=== PATIENT | male | born 1980 | race Caucasian/White ===

== ENCOUNTER 2016-11-04 18:03 | Emergency (ER) | payer MEDICAID ==
[~2016-11-04] VITALS: Ht 185.4 cm; Wt 81.6 kg
[2016-11-04] MEDS ORDERED: ACETAMINOPHEN ES 500 MG TABLET ONE (18:05)
[2016-11-04 18:10] VITALS: BP 126/71
[2016-11-04] MEDS ORDERED: ACETAMINOPHEN ES 500 MG TABLET PO ONE (18:30)
== END 2016-11-04 18:20 | disposition home or self-care (01) ==
LOC: ER 18:04
DX: R52 Pain, unspecified (principal); G89.29 Other chronic pain; Z76.5 Malingerer [conscious simulation]
CPT/HCPCS: 99283; A4606; Z7610

== ENCOUNTER 2017-09-22 15:25 | Emergency (ER) | payer MEDICAID ==
[~2017-09-22] VITALS: Ht 182.9 cm; Wt 90.7 kg
[2017-09-22 15:25] VITALS: BP 132/69
[2017-09-22] MEDS ORDERED: PIPERACILLIN /TAZOBACTAM 3.375 G in IV D5W 50 ML IV ONE (16:00)
[2017-09-22] MEDS ORDERED: VANCOMYCIN 1 GM in IV D5W 250 ML IV ONE (16:00)
[2017-09-22] MEDS ORDERED: KETOROLAC TROMETHAMINE INJ 30 MG/ML VIAL IV ONE (16:00)
[2017-09-22] MEDS ORDERED: IV NS 0.9% 1,000 ML BAG IV ONE (16:00)
[2017-09-22] MEDS ORDERED: PANTOPRAZOLE 40 MG VIAL IV ONE (16:00)
--- NOTE | 2017-09-22 16:00 | NUR ---
Patient eloped from facility. ER MD notified.
[2017-09-22] MEDS ORDERED: LIDOCAINE 1% INJ 50 ML MDV IJ ONE (16:07)
== END 2017-09-22 16:38 | disposition left against medical advice (07) ==
LOC: ER 15:26
DX: L03.116 Cellulitis of left lower limb (principal); L97.429 Non-pressure chronic ulcer of left heel and midfoot with unspecified severity; F19.10 Other psychoactive substance abuse, uncomplicated; F15.10 Other stimulant abuse, uncomplicated; Z59.0 Homelessness
CPT/HCPCS: A4606; J2543; J3370; J3490; J7060; Z7610